=== PATIENT | female | born 1965 | race Caucasian/White ===

== ENCOUNTER 2018-03-13 08:42 | Emergency (ER) | payer MEDICAID ==
[~2018-03-13] VITALS: Ht 157.5 cm; Wt 65.2 kg
[2018-03-13 09:24] LABS: GLUCOSE,POINT OF CARE 129 MG/DL (70-110)
[2018-03-13 09:44] LABS: BILIRUBIN,URINE NEGATIVE (NEGATIVE); GLUCOSE, URINE (UA) NEGATIVE (NEGATIVE); KETONES,URINE NEGATIVE (NEGATIVE); LEUKOCYTE ESTERASE ,URINE NEGATIVE (NEGATIVE); NITRATE,URINE NEGATIVE (NEGATIVE); OCCULT BLOOD,URINE NEGATIVE (NEGATIVE); PROTEIN,URINE NEGATIVE (NEGATIVE); UROBILINOGEN,URINE 0.2 mg/dL (<=1.0)
[2018-03-13 09:56] LABS: BASOPHILS % (AUTO) 0.3 % (0.0-2.0); EOSINOPHILS % (AUTO) 1.3 % (1.0-6.0); HEMATOCRIT 30.8 % (36-46); HEMOGLOBIN 10.4 g/dL (12.0-16.0); LYMPHOCYTES # (AUTO) 3.8 K/uL (1.0-4.8); MEAN CORPUSCULAR HEMOGLOBIN 30.1 pg (26.0-34.0); MEAN CORPUSCULAR HGB CONC 33.9 G/dL (31.0-37.0); MEAN CORPUSCULAR VOLUME 89 fL (80-100); MONOCYTES # (AUTO) 0.7 K/uL (0.1-1.0); MONOCYTES % (AUTO) 4.9 % (2.0-9.0); NEUTROPHILS # (AUTO) 9.8 K/uL (1.8-7.7); NEUTROPHILS % (AUTO) 67.5 % (40.0-70.0); PLATELET COUNT (AUTO) 283 K/uL (150-450); RED BLOOD CELL COUNT(AUTO) 3.46 MIL/uL (4.00-5.20); RED CELL DISTRIBUTION WIDTH 13.4 % (11.5-14.5)
[2018-03-13 10:02] LABS: APPEARANCE,URINE CLEAR (CLEAR); BACTERIA,URINE None Seen /HPF (None Seen); RBC,URINE None Seen /HPF (0-2); WBC,URINE None Seen /HPF (0-5)
[2018-03-13 10:04] LABS: ANION GAP 6 mmol/L (8-16); CALCIUM, TOTAL 8.2 mg/dL (8.8-10.5); CARBON DIOXIDE 28 mmol/L (22-29); CHLORIDE 106 mmol/L (98-107); CREATININE 0.65 mg/dL (0.60-1.30); GLOMERULAR FILTR. RATE CALC > 60 mL/min (>60); GLUCOSE,RANDOM 132 mg/dL (70-110); POTASSIUM 3.9 mmol/L (3.5-5.1); SODIUM SERUM 140 mmol/L (136-145); UREA NITROGEN, BLOOD 24 mg/dL (7-18)
[2018-03-13 10:10] LABS: ALANINE AMINOTRANSFERASE 17 U/L (12-78); ALBUMIN 3.1 g/dL (3.4-5.0); ALKALINE PHOSPHATASE 90 U/L (46-116); ASPARTATE AMINOTRANSFERASE 11 U/L (15-37); BILIRUBIN,TOTAL 0.2 mg/dL (0.1-1.0); TOTAL PROTEIN, SERUM 6.7 g/dL (6.4-8.2)
[2018-03-13] MEDS ORDERED: PHENYLEPHRINE HCL 1% 15 ML NASAL SPRAY NASAL ONE (11:15)
[2018-03-13] MEDS ORDERED: ONDANSETRON HCL 4 MG TABLET PO ONE (12:45)
[2018-03-13 14:02] VITALS: BP 138/88
[2018-03-13] MEDS ORDERED: CEPH500 PO (20:21)
== END 2018-03-13 14:27 | disposition home or self-care (01) ==
LOC: EMS 08:42
DX: R04.0 Epistaxis (principal); F19.90 Other psychoactive substance use, unspecified, uncomplicated
CPT/HCPCS: 30901; 36415; 70450; 80053; 81001; 82962; 85025; 99285; Q0162

== ENCOUNTER 2018-03-13 20:06 | Emergency (ER) | payer MEDICAID ==
[~2018-03-13] VITALS: Ht 157.5 cm; Wt 65.1 kg
[2018-03-13] MEDS ORDERED: CEPH500 PO (20:21)
[2018-03-13] MEDS ORDERED: ONDANSETRON HCL 4 MG/2 ML VIAL IVP ONE ×2 (20:45→23:00)
[2018-03-13] MEDS ORDERED: SODIUM CHLORIDE 0.9% 1,000 ML IV ONE (20:45)
[2018-03-13 21:09] LABS: BASOPHILS % (AUTO) 0.5 % (0.0-2.0); EOSINOPHILS % (AUTO) 0.7 % (1.0-6.0); HEMATOCRIT 27.8 % (36-46); HEMOGLOBIN 9.4 g/dL (12.0-16.0); LYMPHOCYTES # (AUTO) 4.7 K/uL (1.0-4.8); LYMPHOCYTES % (AUTO) 28.5 % (22.0-44.0); MEAN CORPUSCULAR HEMOGLOBIN 30.2 pg (26.0-34.0); MEAN CORPUSCULAR HGB CONC 33.7 G/dL (31.0-37.0); MEAN CORPUSCULAR VOLUME 90 fL (80-100); MONOCYTES # (AUTO) 0.7 K/uL (0.1-1.0); MONOCYTES % (AUTO) 4.4 % (2.0-9.0); NEUTROPHILS # (AUTO) 10.8 K/uL (1.8-7.7); NEUTROPHILS % (AUTO) 65.9 % (40.0-70.0); PLATELET COUNT (AUTO) 298 K/uL (150-450); RED BLOOD CELL COUNT(AUTO) 3.11 MIL/uL (4.00-5.20); RED CELL DISTRIBUTION WIDTH 13.7 % (11.5-14.5)
[2018-03-13 21:11] LABS: ANION GAP 7 mmol/L (8-16); CARBON DIOXIDE 26 mmol/L (22-29); CHLORIDE 106 mmol/L (98-107); CREATININE 0.74 mg/dL (0.60-1.30); GLOMERULAR FILTR. RATE CALC > 60 mL/min (>60); GLUCOSE,RANDOM 127 mg/dL (70-110); POTASSIUM 3.7 mmol/L (3.5-5.1); SODIUM SERUM 139 mmol/L (136-145); UREA NITROGEN, BLOOD 27 mg/dL (7-18)
[2018-03-13 21:15] LABS: INR 1.1 (0.9-1.1); PROTHROMBIN TIME 11.6 SEC (9.4-11.6)
[2018-03-13 21:17] LABS: ALANINE AMINOTRANSFERASE 17 U/L (12-78); ALBUMIN 3.2 g/dL (3.4-5.0); ALKALINE PHOSPHATASE 83 U/L (46-116); ASPARTATE AMINOTRANSFERASE 8 U/L (15-37); BILIRUBIN,TOTAL 0.2 mg/dL (0.1-1.0); TOTAL PROTEIN, SERUM 6.7 g/dL (6.4-8.2)
[2018-03-14] MEDS ORDERED: METOCLOPRAMIDE HCL 5 MG/ML 2 ML VIAL IVP ONE (00:45)
[2018-03-14 01:38] VITALS: BP 154/88
== END 2018-03-14 02:00 | disposition home or self-care (01) ==
LOC: EMS 20:08
DX: K92.0 Hematemesis (principal); R04.0 Epistaxis; F19.90 Other psychoactive substance use, unspecified, uncomplicated
CPT/HCPCS: 36415; 80053; 85025; 85610; 85730; 96361; 96374; 96375; 96376; 99285; J2405; J2765; J7030

== ENCOUNTER 2018-12-03 23:42 | Inpatient (IN) | payer SELFPAY ==
[~2018-12-03] VITALS: Ht 162.6 cm; Wt 63.6 kg
[~2018-12-03 23:42] MED LIST: CEPH500 PO
[2018-12-04] MEDS ORDERED: SODIUM CHLORIDE 0.9% 1,900 ML IV ONE (01:30)
[2018-12-04] MEDS ORDERED: VANCOMYCIN HCL 1.25 GM in DEXTROSE 5%-WATER 250 ML IV ONE ×2 (01:30→22:00)
[2018-12-04] MEDS ORDERED: CefTRIAXone 1 GM/DEXTROSE 50 ML IV ONE (01:30)
[2018-12-04 01:32] LABS: BASOPHILS % (AUTO) 0.3 % (0.0-2.0); EOSINOPHILS % (AUTO) 0.3 % (1.0-6.0); HEMATOCRIT 41.7 % (36-46); HEMOGLOBIN 13.7 g/dL (12.0-16.0); LYMPHOCYTES # (AUTO) 2.6 K/uL (1.0-4.8); LYMPHOCYTES % (AUTO) 9.1 % (22.0-44.0); MEAN CORPUSCULAR HGB CONC 32.8 G/dL (31.0-37.0); MEAN CORPUSCULAR VOLUME 86 fL (80-100); MONOCYTES % (AUTO) 7.2 % (2.0-9.0); NEUTROPHILS # (AUTO) 23.5 K/uL (1.8-7.7); NEUTROPHILS % (AUTO) 83.1 % (40.0-70.0); PLATELET COUNT (AUTO) 482 K/uL (150-450); RED BLOOD CELL COUNT(AUTO) 4.88 MIL/uL (4.00-5.20); RED CELL DISTRIBUTION WIDTH 13.5 % (11.5-14.5)
[2018-12-04] MEDS ORDERED: IOVERSOL 350 MG/ML 100 ML VIAL ONE (01:36)
[2018-12-04 01:39] LABS: ANION GAP 9 mmol/L (8-16); CALCIUM, TOTAL 9.1 mg/dL (8.8-10.5); CARBON DIOXIDE 30 mmol/L (22-29); CHLORIDE 95 mmol/L (98-107); CREATININE 0.56 mg/dL (0.60-1.30); GLOMERULAR FILTR. RATE CALC > 60 mL/min (>60); GLUCOSE,RANDOM 130 mg/dL (70-110); POTASSIUM 3.5 mmol/L (3.5-5.1); SODIUM SERUM 134 mmol/L (136-145); UREA NITROGEN, BLOOD 7 mg/dL (7-18)
[2018-12-04 01:41] LABS: INR 1.3 (0.9-1.1); PROTHROMBIN TIME 13.3 SEC (9.4-11.6)
[2018-12-04 01:45] LABS: ALANINE AMINOTRANSFERASE 65 U/L (12-78); ALBUMIN 2.3 g/dL (3.4-5.0); ALKALINE PHOSPHATASE 297 U/L (46-116); ASPARTATE AMINOTRANSFERASE 61 U/L (15-37); BILIRUBIN,TOTAL 0.5 mg/dL (0.1-1.0); TOTAL PROTEIN, SERUM 7.5 g/dL (6.4-8.2)
[2018-12-04] MEDS ORDERED: ACETAMINOPHEN 650 MG/ISO-OSM 65 ML IV ONE (01:45)
[2018-12-04 11:21] VITALS: BP 119/59
[2018-12-04] MEDS ORDERED: SODIUM CL IRRIG SOLN BAG 0 ML IRRIG ONE ×2 (13:29→15:55)
[2018-12-04] MEDS ORDERED: BUPIVACAINE HCL/PF 0.5% 30 ML VIAL ONE (13:46)
[2018-12-04] MEDS ORDERED: LIDOCAINE 2%/EPI 1:200,000/PF 20 ML VIAL ONE (13:46)
[2018-12-04] MEDS ORDERED: RINGERS SOLUTION,LACTATED 1,000 ML IV ONE ×2 (14:00→16:46)
[2018-12-04] MEDS ORDERED: TRANEXAMIC ACID 1,000 MG in DEXTROSE 5%-WATER 50 ML IV ONE (16:45)
[2018-12-04] MEDS ORDERED: MORPHINE SULFATE 2 MG/ML SYRINGE IVP PRN (17:00)
[2018-12-04] MEDS ORDERED: HYDROCODONE/ACETAMINOPHEN 5-325 MG TABLET PO PRN (17:00)
[2018-12-04] MEDS ORDERED: FentaNYL CITRATE-PF 100 MCG/2 ML VIAL IVP PRN (17:15)
[2018-12-04] MEDS ORDERED: HYDROmorphone 2 MG/ML SYRINGE IVP PRN (17:15)
[2018-12-04] MEDS ORDERED: MEPERIDINE-PF 25 MG/ML VIAL IVP PRN (17:15)
[2018-12-04] MEDS ORDERED: MEPERIDINE-PF 25 MG/ML VIAL ONE (17:30)
[2018-12-04] MEDS ORDERED: HYDROmorphone 2 MG/ML SYRINGE ONE (17:30)
[2018-12-04 18:18] VITALS: BP 109/60
[2018-12-04 20:19] VITALS: BP 116/74
[2018-12-04] MEDS ORDERED: ONDANSETRON HCL 4 MG/2 ML VIAL IVP PRN (21:00)
[2018-12-04] MEDS ORDERED: OxyCODONE HCL/ACETAMINOPHEN 5-325 MG TABLET PO PRN (21:00)
[2018-12-04] MEDS ORDERED: 0.9% SODIUM CHLORIDE 10 ML SYRINGE IVP PRN (21:00)
[2018-12-04] MEDS: DOCUSATE SODIUM 100 MG CAPSULE PO SCH (22:26)
[2018-12-04 23:47] VITALS: BP 104/61
[2018-12-05] MEDS: PIPERACILLIN/TAZO 3.375 GM/D5W 50 ML IV SCH ×5 (00:30→23:24)
[2018-12-05 05:12] VITALS: BP 121/76
[2018-12-05] MEDS ORDERED: ONDANSETRON HCL 4 MG/2 ML VIAL IVP ONE (05:18)
[2018-12-05] MEDS ORDERED: METOCLOPRAMIDE HCL 5 MG/ML 2 ML VIAL IVP ONE (05:18)
[2018-12-05] MEDS ORDERED: MIDAZOLAM HCL 2 MG/2 ML VIAL IVP ONE (05:18)
[2018-12-05] MEDS ORDERED: ROCURONIUM BROMIDE 10 MG/ML 5 ML VIAL IVP ONE (05:18)
[2018-12-05] MEDS ORDERED: LIDOCAINE/PF 2% 5 ML SYRINGE IVP ONE (05:18)
[2018-12-05] MEDS ORDERED: DEXAMETHASONE SOD PHOS 4 MG/ML VIAL IVP ONE (05:18)
[2018-12-05] MEDS ORDERED: NEOSTIGMINE METHYLSULFATE 1 MG/ML 10 ML VIAL IVP ONE (05:18)
[2018-12-05] MEDS ORDERED: PROPOFOL 1% 20 ML VIAL IVP ONE (05:18)
[2018-12-05] MEDS ORDERED: FentaNYL CITRATE-PF 100 MCG/2 ML VIAL IVP ONE (05:18)
[2018-12-05] MEDS ORDERED: GLYCOPYRROLATE 0.2 MG/ML VIAL IM ONE (05:18)
[2018-12-05 06:00] LABS: BASOPHILS % (AUTO) 0.1 % (0.0-2.0); EOSINOPHILS % (AUTO) 0.1 % (1.0-6.0); HEMATOCRIT 34.6 % (36-46); HEMOGLOBIN 11.1 g/dL (12.0-16.0); LYMPHOCYTES # (AUTO) 2.4 K/uL (1.0-4.8); LYMPHOCYTES % (AUTO) 11.3 % (22.0-44.0); MEAN CORPUSCULAR HEMOGLOBIN 27.8 pg (26.0-34.0); MEAN CORPUSCULAR HGB CONC 32.2 G/dL (31.0-37.0); MEAN CORPUSCULAR VOLUME 87 fL (80-100); MONOCYTES # (AUTO) 1.2 K/uL (0.1-1.0); MONOCYTES % (AUTO) 5.5 % (2.0-9.0); NEUTROPHILS # (AUTO) 17.6 K/uL (1.8-7.7); PLATELET COUNT (AUTO) 495 K/uL (150-450); RED CELL DISTRIBUTION WIDTH 13.7 % (11.5-14.5)
[2018-12-05 06:28] LABS: ANION GAP 7 mmol/L (8-16); CALCIUM, TOTAL 9.1 mg/dL (8.8-10.5); CARBON DIOXIDE 31 mmol/L (22-29); CHLORIDE 101 mmol/L (98-107); CREATININE 0.64 mg/dL (0.60-1.30); GLOMERULAR FILTR. RATE CALC > 60 mL/min (>60); GLUCOSE,RANDOM 109 mg/dL (70-110); POTASSIUM 3.8 mmol/L (3.5-5.1); SODIUM SERUM 139 mmol/L (136-145); UREA NITROGEN, BLOOD 5 mg/dL (7-18)
[2018-12-05] MEDS ORDERED: SODIUM CHLORIDE 0.9% 250 ML IV ONE (06:44)
[2018-12-05 07:52] LABS: AMPHET/METH SCREEN,URINE NEGATIVE (NEGATIVE); BARBITURATE SCREEN, URINE NEGATIVE (NEGATIVE); BENZODIAZEPINES SCREEN,URINE POSITIVE (NEGATIVE); CANNABINOID SCREEN,URINE NEGATIVE (NEGATIVE); COCAINE SCREEN,URINE NEGATIVE (NEGATIVE); METHADONE SCREEN, URINE NEGATIVE (NEGATIVE); OPIATE SCREEN,URINE NEGATIVE (NEGATIVE); PHENCYCLIDINE SCREEN,URINE NEGATIVE (NEGATIVE)
[2018-12-05 08:10] VITALS: BP 114/61
[2018-12-05 08:53] VITALS: BP 114/71
[2018-12-05] MEDS: VANCOMYCIN HCL 1.25 GM in DEXTROSE 5%-WATER 250 ML IV SCH ×2 (08:56→19:55)
[2018-12-05] MEDS: DOCUSATE SODIUM 100 MG CAPSULE PO SCH ×2 (08:56→19:54)
[2018-12-05] MEDS: FAMOTIDINE 10 MG/ML 2 ML VIAL IVP SCH (08:56)
[2018-12-05] MEDS: OxyCODONE HCL/ACETAMINOPHEN 5-325 MG TABLET PO PRN (08:57)
[2018-12-05] MEDS: MORPHINE SULFATE 2 MG/ML SYRINGE IVP PRN (14:30)
[2018-12-05 19:42] VITALS: BP 106/57
[2018-12-05 23:35] VITALS: BP 98/65
[2018-12-05] MEDS: ACETAMINOPHEN 500 MG TABLET PO PRN (23:39)
[2018-12-06 04:06] VITALS: BP 103/54
[2018-12-06] MEDS: PIPERACILLIN/TAZO 3.375 GM/D5W 50 ML IV SCH ×4 (05:35→23:22)
[2018-12-06 05:52] LABS: ANION GAP 6 mmol/L (8-16); CARBON DIOXIDE 31 mmol/L (22-29); CHLORIDE 106 mmol/L (98-107); CREATININE 0.86 mg/dL (0.60-1.30); GLOMERULAR FILTR. RATE CALC > 60 mL/min (>60); GLUCOSE,RANDOM 89 mg/dL (70-110); POTASSIUM 3.4 mmol/L (3.5-5.1); SODIUM SERUM 143 mmol/L (136-145); UREA NITROGEN, BLOOD 6 mg/dL (7-18)
[2018-12-06 07:45] VITALS: BP 116/73
[2018-12-06] MEDS: DOCUSATE SODIUM 100 MG CAPSULE PO SCH ×2 (08:25→20:10)
[2018-12-06] MEDS: FAMOTIDINE 10 MG/ML 2 ML VIAL IVP SCH (08:25)
[2018-12-06] MEDS: VANCOMYCIN HCL 1.25 GM in DEXTROSE 5%-WATER 250 ML IV SCH ×2 (08:25→20:10)
[2018-12-06] MEDS ORDERED: POTASSIUM CHLORIDE 20 MEQ ER TABLET PO ONE (11:30)
[2018-12-06 11:35] VITALS: BP 107/61
[2018-12-06 15:11] LABS: BASOPHILS % (AUTO) 0.4 % (0.0-2.0); EOSINOPHILS % (AUTO) 1.6 % (1.0-6.0); HEMATOCRIT 33.6 % (36-46); HEMOGLOBIN 10.8 g/dL (12.0-16.0); LYMPHOCYTES # (AUTO) 2.9 K/uL (1.0-4.8); LYMPHOCYTES % (AUTO) 23.3 % (22.0-44.0); MEAN CORPUSCULAR HEMOGLOBIN 27.8 pg (26.0-34.0); MEAN CORPUSCULAR VOLUME 87 fL (80-100); MONOCYTES % (AUTO) 7.6 % (2.0-9.0); NEUTROPHILS # (AUTO) 8.5 K/uL (1.8-7.7); NEUTROPHILS % (AUTO) 67.1 % (40.0-70.0); PLATELET COUNT (AUTO) 563 K/uL (150-450); RED BLOOD CELL COUNT(AUTO) 3.87 MIL/uL (4.00-5.20); RED CELL DISTRIBUTION WIDTH 13.7 % (11.5-14.5)
[2018-12-06 15:22] LABS: CALCIUM, TOTAL 8.7 mg/dL (8.8-10.5); CREATININE 1.13 mg/dL (0.60-1.30)
[2018-12-06 16:55] VITALS: BP 111/71
[2018-12-06] MEDS: OxyCODONE HCL/ACETAMINOPHEN 5-325 MG TABLET PO PRN (17:24)
[2018-12-06 21:09] VITALS: BP 127/72
[2018-12-06] MEDS ORDERED: SODIUM CHLORIDE 0.9% 500 ML IV ONE (21:12)
[2018-12-06 23:57] VITALS: BP 102/54
[2018-12-07] MEDS: PIPERACILLIN/TAZO 3.375 GM/D5W 50 ML IV SCH (05:31)
[2018-12-07 05:35] VITALS: BP 111/60
[2018-12-07 06:01] LABS: ANION GAP 4 mmol/L (8-16); CALCIUM, TOTAL 8.8 mg/dL (8.8-10.5); CARBON DIOXIDE 31 mmol/L (22-29); CHLORIDE 108 mmol/L (98-107); CREATININE 0.76 mg/dL (0.60-1.30); GLOMERULAR FILTR. RATE CALC > 60 mL/min (>60); GLUCOSE,RANDOM 110 mg/dL (70-110); SODIUM SERUM 143 mmol/L (136-145); UREA NITROGEN, BLOOD 11 mg/dL (7-18); VANCOMYCIN,RANDOM 16.6 mcg/mL (25.0-50.0)
[2018-12-07 07:30] VITALS: BP 125/83
[2018-12-07] MEDS: DOCUSATE SODIUM 100 MG CAPSULE PO SCH ×2 (08:04→21:10)
[2018-12-07] MEDS: FAMOTIDINE 10 MG/ML 2 ML VIAL IVP SCH (08:04)
[2018-12-07] MEDS: VANCOMYCIN HCL 1.25 GM in DEXTROSE 5%-WATER 250 ML IV SCH (08:04)
[2018-12-07 11:07] VITALS: BP 142/80
[2018-12-07] MEDS: VANCOMYCIN HCL 1 GM/D5% WATER 200 ML IV SCH ×2 (14:44→22:13)
[2018-12-07 16:18] VITALS: BP 140/84
[2018-12-07 19:50] VITALS: BP 124/77
[2018-12-07 23:27] VITALS: BP 120/60
[2018-12-08 04:40] VITALS: BP 112/66
[2018-12-08] MEDS: VANCOMYCIN HCL 1 GM/D5% WATER 200 ML IV SCH ×3 (05:49→23:43)
[2018-12-08 06:39] LABS: BASOPHILS % (AUTO) 0.5 % (0.0-2.0); EOSINOPHILS % (AUTO) 1.1 % (1.0-6.0); HEMATOCRIT 35.9 % (36-46); HEMOGLOBIN 11.5 g/dL (12.0-16.0); LYMPHOCYTES # (AUTO) 3.3 K/uL (1.0-4.8); LYMPHOCYTES % (AUTO) 21.4 % (22.0-44.0); MEAN CORPUSCULAR HEMOGLOBIN 28.1 pg (26.0-34.0); MEAN CORPUSCULAR HGB CONC 32.2 G/dL (31.0-37.0); MEAN CORPUSCULAR VOLUME 87 fL (80-100); MONOCYTES # (AUTO) 0.9 K/uL (0.1-1.0); MONOCYTES % (AUTO) 6.1 % (2.0-9.0); NEUTROPHILS # (AUTO) 10.9 K/uL (1.8-7.7); NEUTROPHILS % (AUTO) 70.9 % (40.0-70.0); PLATELET COUNT (AUTO) 644 K/uL (150-450); RED CELL DISTRIBUTION WIDTH 14.2 % (11.5-14.5)
[2018-12-08 07:05] LABS: ANION GAP 7 mmol/L (8-16); CALCIUM, TOTAL 9.4 mg/dL (8.8-10.5); CARBON DIOXIDE 28 mmol/L (22-29); CHLORIDE 106 mmol/L (98-107); CREATININE 0.75 mg/dL (0.60-1.30); GLOMERULAR FILTR. RATE CALC > 60 mL/min (>60); GLUCOSE,RANDOM 115 mg/dL (70-110); POTASSIUM 4.4 mmol/L (3.5-5.1); SODIUM SERUM 141 mmol/L (136-145); UREA NITROGEN, BLOOD 9 mg/dL (7-18); VANCOMYCIN,RANDOM 41.9 mcg/mL (25.0-50.0)
[2018-12-08 07:10] VITALS: BP 124/54
[2018-12-08] MEDS: FAMOTIDINE 10 MG/ML 2 ML VIAL IVP SCH (08:49)
[2018-12-08] MEDS: DOCUSATE SODIUM 100 MG CAPSULE PO SCH ×2 (08:50→21:00)
[2018-12-08 11:20] VITALS: BP 122/59
[2018-12-08 15:30] VITALS: BP 134/80
[2018-12-08 19:46] VITALS: BP 133/79
[2018-12-08 23:23] VITALS: BP 144/82
[2018-12-09 05:22] VITALS: BP 128/73
[2018-12-09 06:27] LABS: ANION GAP 8 mmol/L (8-16); CALCIUM, TOTAL 9.4 mg/dL (8.8-10.5); CARBON DIOXIDE 28 mmol/L (22-29); CHLORIDE 102 mmol/L (98-107); CREATININE 0.85 mg/dL (0.60-1.30); GLOMERULAR FILTR. RATE CALC > 60 mL/min (>60); GLUCOSE,RANDOM 104 mg/dL (70-110); POTASSIUM 4.3 mmol/L (3.5-5.1); SODIUM SERUM 138 mmol/L (136-145); UREA NITROGEN, BLOOD 12 mg/dL (7-18)
[2018-12-09] MEDS: VANCOMYCIN HCL 1 GM/D5% WATER 200 ML IV SCH ×3 (07:33→22:51)
[2018-12-09 08:10] VITALS: BP 105/65
[2018-12-09] MEDS: DOCUSATE SODIUM 100 MG CAPSULE PO SCH ×2 (08:18→20:13)
[2018-12-09] MEDS: FAMOTIDINE 10 MG/ML 2 ML VIAL IVP SCH (08:18)
[2018-12-09 13:03] VITALS: BP 118/74
[2018-12-09 13:11] LABS: BASOPHILS % (AUTO) 0.8 % (0.0-2.0); EOSINOPHILS % (AUTO) 1.3 % (1.0-6.0); HEMATOCRIT 37.5 % (36-46); HEMOGLOBIN 11.8 g/dL (12.0-16.0); MEAN CORPUSCULAR HEMOGLOBIN 27.8 pg (26.0-34.0); MEAN CORPUSCULAR HGB CONC 31.4 G/dL (31.0-37.0); MEAN CORPUSCULAR VOLUME 89 fL (80-100); MONOCYTES # (AUTO) 1.3 K/uL (0.1-1.0); MONOCYTES % (AUTO) 7.1 % (2.0-9.0); NEUTROPHILS # (AUTO) 13.1 K/uL (1.8-7.7); NEUTROPHILS % (AUTO) 73.8 % (40.0-70.0); PLATELET COUNT (AUTO) 680 K/uL (150-450); RED BLOOD CELL COUNT(AUTO) 4.23 MIL/uL (4.00-5.20); RED CELL DISTRIBUTION WIDTH 14.3 % (11.5-14.5)
[2018-12-09 13:13] LABS: ALANINE AMINOTRANSFERASE 32 U/L (12-78); ALBUMIN 2.5 g/dL (3.4-5.0); ALKALINE PHOSPHATASE 130 U/L (46-116); ASPARTATE AMINOTRANSFERASE 24 U/L (15-37); BILIRUBIN,TOTAL 0.2 mg/dL (0.1-1.0); TOTAL PROTEIN, SERUM 7.2 g/dL (6.4-8.2)
[2018-12-09] MEDS ORDERED: MAGNESIUM HYDROXIDE SUSPENSION 30 ML UDCUP PO PRN (15:00)
[2018-12-09] MEDS: MORPHINE SULFATE 2 MG/ML SYRINGE IVP PRN (15:03)
[2018-12-09 16:10] VITALS: BP 122/69
[2018-12-09 20:08] VITALS: BP 120/73
[2018-12-09 23:48] VITALS: BP 109/68
[2018-12-10 04:46] VITALS: BP 129/74
[2018-12-10 05:35] LABS: ANION GAP 7 mmol/L (8-16); CALCIUM, TOTAL 9.4 mg/dL (8.8-10.5); CARBON DIOXIDE 29 mmol/L (22-29); CHLORIDE 104 mmol/L (98-107); GLOMERULAR FILTR. RATE CALC > 60 mL/min (>60); GLUCOSE,RANDOM 109 mg/dL (70-110); POTASSIUM 4.3 mmol/L (3.5-5.1); SODIUM SERUM 140 mmol/L (136-145); UREA NITROGEN, BLOOD 12 mg/dL (7-18)
[2018-12-10] MEDS: VANCOMYCIN HCL 1 GM/D5% WATER 200 ML IV SCH ×3 (06:22→22:54)
[2018-12-10 07:43] VITALS: BP 125/68
[2018-12-10] MEDS: OxyCODONE HCL/ACETAMINOPHEN 5-325 MG TABLET PO PRN (07:45)
[2018-12-10] MEDS: FAMOTIDINE 10 MG/ML 2 ML VIAL IVP SCH (07:45)
[2018-12-10] MEDS: DOCUSATE SODIUM 100 MG CAPSULE PO SCH ×2 (07:45→20:03)
[2018-12-10 09:39] LABS: BASOPHILS % (AUTO) 0.5 % (0.0-2.0); EOSINOPHILS % (AUTO) 1.3 % (1.0-6.0); HEMATOCRIT 36.5 % (36-46); HEMOGLOBIN 11.7 g/dL (12.0-16.0); LYMPHOCYTES # (AUTO) 2.8 K/uL (1.0-4.8); MEAN CORPUSCULAR HEMOGLOBIN 28.3 pg (26.0-34.0); MEAN CORPUSCULAR VOLUME 88 fL (80-100); MONOCYTES # (AUTO) 1.1 K/uL (0.1-1.0); MONOCYTES % (AUTO) 6.4 % (2.0-9.0); NEUTROPHILS # (AUTO) 12.4 K/uL (1.8-7.7); NEUTROPHILS % (AUTO) 74.8 % (40.0-70.0); PLATELET COUNT (AUTO) 668 K/uL (150-450); RED BLOOD CELL COUNT(AUTO) 4.13 MIL/uL (4.00-5.20); RED CELL DISTRIBUTION WIDTH 14.2 % (11.5-14.5)
[2018-12-10 11:34] VITALS: BP 117/73
[2018-12-10 15:55] VITALS: BP 134/84
[2018-12-10 19:51] VITALS: BP 121/67
[2018-12-10 23:56] VITALS: BP 116/66
[2018-12-11 04:59] VITALS: BP 131/70
[2018-12-11 05:52] LABS: ANION GAP 4 mmol/L (8-16); CALCIUM, TOTAL 9.3 mg/dL (8.8-10.5); CARBON DIOXIDE 30 mmol/L (22-29); CHLORIDE 103 mmol/L (98-107); CREATININE 0.83 mg/dL (0.60-1.30); GLOMERULAR FILTR. RATE CALC > 60 mL/min (>60); GLUCOSE,RANDOM 101 mg/dL (70-110); SODIUM SERUM 137 mmol/L (136-145); UREA NITROGEN, BLOOD 11 mg/dL (7-18); VANCOMYCIN,RANDOM 28.6 mcg/mL (25.0-50.0)
[2018-12-11] MEDS: VANCOMYCIN HCL 1 GM/D5% WATER 200 ML IV SCH (06:33)
[2018-12-11 07:45] VITALS: BP 127/56
[2018-12-11] MEDS: DOCUSATE SODIUM 100 MG CAPSULE PO SCH ×2 (08:25→20:20)
[2018-12-11] MEDS: FAMOTIDINE 10 MG/ML 2 ML VIAL IVP SCH (08:25)
[2018-12-11 11:20] VITALS: BP 97/56
[2018-12-11 16:00] VITALS: BP 121/66
[2018-12-11 19:38] VITALS: BP 113/60
[2018-12-11 23:42] VITALS: BP 110/62
[2018-12-12 05:37] VITALS: BP 131/60
[2018-12-12 05:50] LABS: BASOPHILS % (AUTO) 0.4 % (0.0-2.0); EOSINOPHILS % (AUTO) 1.8 % (1.0-6.0); HEMATOCRIT 34.2 % (36-46); HEMOGLOBIN 11.1 g/dL (12.0-16.0); LYMPHOCYTES # (AUTO) 3.1 K/uL (1.0-4.8); MEAN CORPUSCULAR HEMOGLOBIN 28.3 pg (26.0-34.0); MEAN CORPUSCULAR HGB CONC 32.4 G/dL (31.0-37.0); MEAN CORPUSCULAR VOLUME 87 fL (80-100); MONOCYTES # (AUTO) 1.1 K/uL (0.1-1.0); MONOCYTES % (AUTO) 7.8 % (2.0-9.0); NEUTROPHILS # (AUTO) 9.1 K/uL (1.8-7.7); PLATELET COUNT (AUTO) 679 K/uL (150-450); RED BLOOD CELL COUNT(AUTO) 3.92 MIL/uL (4.00-5.20); RED CELL DISTRIBUTION WIDTH 14.5 % (11.5-14.5)
[2018-12-12 06:44] LABS: ANION GAP 7 mmol/L (8-16); CALCIUM, TOTAL 9.5 mg/dL (8.8-10.5); CARBON DIOXIDE 30 mmol/L (22-29); CHLORIDE 102 mmol/L (98-107); CREATININE 0.89 mg/dL (0.60-1.30); GLOMERULAR FILTR. RATE CALC > 60 mL/min (>60); GLUCOSE,RANDOM 106 mg/dL (70-110); POTASSIUM 4.1 mmol/L (3.5-5.1); SODIUM SERUM 139 mmol/L (136-145); UREA NITROGEN, BLOOD 11 mg/dL (7-18)
[2018-12-12 07:55] VITALS: BP 127/61
[2018-12-12] MEDS ORDERED: VANCOMYCIN HCL 1 GM/D5% WATER 200 ML IV SCH (08:00)
[2018-12-12] MEDS: DOCUSATE SODIUM 100 MG CAPSULE PO SCH ×2 (08:04→20:10)
[2018-12-12] MEDS: MULTIVITAMINS WITH MINERALS, THERAPEUTIC TABLET PO SCH (08:04)
[2018-12-12] MEDS: VANCOMYCIN HCL 1.25 GM in DEXTROSE 5%-WATER 250 ML IV SCH ×2 (08:04→18:47)
[2018-12-12] MEDS: ZINC SULFATE 220 MG CAPSULE PO SCH (08:04)
[2018-12-12] MEDS: ASCORBIC ACID 500 MG TABLET PO SCH (08:04)
[2018-12-12] MEDS: FAMOTIDINE 10 MG/ML 2 ML VIAL IVP SCH (08:05)
[2018-12-12 12:40] VITALS: BP 112/53
[2018-12-12 20:02] VITALS: BP 124/65
[2018-12-13 05:29] LABS: ANION GAP 9 mmol/L (8-16); CALCIUM, TOTAL 9.1 mg/dL (8.8-10.5); CARBON DIOXIDE 28 mmol/L (22-29); CHLORIDE 104 mmol/L (98-107); CREATININE 0.88 mg/dL (0.60-1.30); GLOMERULAR FILTR. RATE CALC > 60 mL/min (>60); GLUCOSE,RANDOM 108 mg/dL (70-110); POTASSIUM 4.2 mmol/L (3.5-5.1); SODIUM SERUM 141 mmol/L (136-145); UREA NITROGEN, BLOOD 16 mg/dL (7-18)
[2018-12-13 06:00] VITALS: BP 127/67
[2018-12-13] MEDS: VANCOMYCIN HCL 1.25 GM in DEXTROSE 5%-WATER 250 ML IV SCH ×2 (06:15→20:41)
[2018-12-13] MEDS: ACETAMINOPHEN 500 MG TABLET PO PRN (06:15)
[2018-12-13 07:38] VITALS: BP 145/60
[2018-12-13] MEDS: FAMOTIDINE 10 MG/ML 2 ML VIAL IVP SCH (08:42)
[2018-12-13] MEDS: DOCUSATE SODIUM 100 MG CAPSULE PO SCH ×2 (08:42→21:00)
[2018-12-13] MEDS: ASCORBIC ACID 500 MG TABLET PO SCH (08:42)
[2018-12-13] MEDS: ZINC SULFATE 220 MG CAPSULE PO SCH (08:43)
[2018-12-13] MEDS: MULTIVITAMINS WITH MINERALS, THERAPEUTIC TABLET PO SCH (08:43)
[2018-12-13 11:32] VITALS: BP 134/67
[2018-12-13 16:05] VITALS: BP 126/73
[2018-12-13 19:52] VITALS: BP 134/65
[2018-12-13 23:29] VITALS: BP 137/69
[2018-12-14 04:58] VITALS: BP 143/71
[2018-12-14 06:29] LABS: ANION GAP 9 mmol/L (8-16); CALCIUM, TOTAL 9.2 mg/dL (8.8-10.5); CARBON DIOXIDE 26 mmol/L (22-29); CHLORIDE 105 mmol/L (98-107); CREATININE 0.85 mg/dL (0.60-1.30); GLOMERULAR FILTR. RATE CALC > 60 mL/min (>60); GLUCOSE,RANDOM 103 mg/dL (70-110); SODIUM SERUM 140 mmol/L (136-145); UREA NITROGEN, BLOOD 16 mg/dL (7-18); VANCOMYCIN,RANDOM 16.2 mcg/mL (25.0-50.0)
[2018-12-14] MEDS: VANCOMYCIN HCL 1.25 GM in DEXTROSE 5%-WATER 250 ML IV SCH (07:33)
[2018-12-14 07:41] VITALS: BP 125/72
[2018-12-14] MEDS: ASCORBIC ACID 500 MG TABLET PO SCH (08:15)
[2018-12-14] MEDS: FAMOTIDINE 10 MG/ML 2 ML VIAL IVP SCH (08:15)
[2018-12-14] MEDS: ZINC SULFATE 220 MG CAPSULE PO SCH (08:16)
[2018-12-14] MEDS: DOCUSATE SODIUM 100 MG CAPSULE PO SCH ×2 (08:16→20:41)
[2018-12-14] MEDS: MULTIVITAMINS WITH MINERALS, THERAPEUTIC TABLET PO SCH (08:16)
[2018-12-14 11:18] VITALS: BP 137/71
[2018-12-14] MEDS: VANCOMYCIN HCL 1 GM/D5% WATER 200 ML IV SCH ×2 (14:30→23:09)
[2018-12-14 16:06] VITALS: BP 135/85
[2018-12-14 20:29] VITALS: BP 120/69
[2018-12-14] MEDS ORDERED: SODIUM CHLORIDE 0.9% 500 ML IV ONE (23:12)
[2018-12-14 23:53] VITALS: BP 110/63
[2018-12-15 05:15] VITALS: BP 123/67
[2018-12-15] MEDS: VANCOMYCIN HCL 1 GM/D5% WATER 200 ML IV SCH ×3 (06:48→22:27)
[2018-12-15 07:43] LABS: ANION GAP 13 mmol/L (8-16); CALCIUM, TOTAL 8.9 mg/dL (8.8-10.5); CARBON DIOXIDE 27 mmol/L (22-29); CHLORIDE 105 mmol/L (98-107); GLOMERULAR FILTR. RATE CALC > 60 mL/min (>60); GLUCOSE,RANDOM 95 mg/dL (70-110); SODIUM SERUM 145 mmol/L (136-145); UREA NITROGEN, BLOOD 14 mg/dL (7-18); VANCOMYCIN,RANDOM 21.7 mcg/mL (25.0-50.0)
[2018-12-15 07:56] VITALS: BP 119/69
[2018-12-15] MEDS: MULTIVITAMINS WITH MINERALS, THERAPEUTIC TABLET PO SCH (08:09)
[2018-12-15] MEDS: DOCUSATE SODIUM 100 MG CAPSULE PO SCH ×2 (08:09→21:23)
[2018-12-15] MEDS: FAMOTIDINE 10 MG/ML 2 ML VIAL IVP SCH (08:09)
[2018-12-15] MEDS: ASCORBIC ACID 500 MG TABLET PO SCH (08:09)
[2018-12-15] MEDS: ZINC SULFATE 220 MG CAPSULE PO SCH (08:09)
[2018-12-15 11:55] VITALS: BP 126/63
[2018-12-15 15:25] VITALS: BP 130/83
[2018-12-15 19:31] VITALS: BP 133/71
[2018-12-15 19:35] VITALS: BP 133/71
[2018-12-16] VITALS (7 sets, daily range): BP systolic 104–132; BP diastolic 57–77
[2018-12-16] MEDS: VANCOMYCIN HCL 1 GM/D5% WATER 200 ML IV SCH ×3 (06:26→23:43)
[2018-12-16 07:30] LABS: ANION GAP 7 mmol/L (8-16); CALCIUM, TOTAL 9.3 mg/dL (8.8-10.5); CARBON DIOXIDE 29 mmol/L (22-29); CHLORIDE 105 mmol/L (98-107); CREATININE 0.82 mg/dL (0.60-1.30); GLOMERULAR FILTR. RATE CALC > 60 mL/min (>60); GLUCOSE,RANDOM 93 mg/dL (70-110); POTASSIUM 4.1 mmol/L (3.5-5.1); SODIUM SERUM 141 mmol/L (136-145)
[2018-12-16 07:48] LABS: UREA NITROGEN, BLOOD 15 mg/dL (7-18)
[2018-12-16] MEDS: MULTIVITAMINS WITH MINERALS, THERAPEUTIC TABLET PO SCH (08:34)
[2018-12-16] MEDS: ZINC SULFATE 220 MG CAPSULE PO SCH (08:34)
[2018-12-16] MEDS: DOCUSATE SODIUM 100 MG CAPSULE PO SCH ×2 (08:34→21:00)
[2018-12-16] MEDS: FAMOTIDINE 10 MG/ML 2 ML VIAL IVP SCH (08:34)
[2018-12-16] MEDS: ASCORBIC ACID 500 MG TABLET PO SCH (08:34)
[2018-12-16] MEDS: ACETAMINOPHEN 500 MG TABLET PO PRN (16:09)
[2018-12-17 05:30] VITALS: BP 133/62
[2018-12-17] MEDS: VANCOMYCIN HCL 1 GM/D5% WATER 200 ML IV SCH ×2 (06:00→14:24)
[2018-12-17 06:13] LABS: ANION GAP 6 mmol/L (8-16); CALCIUM, TOTAL 9.5 mg/dL (8.8-10.5); CARBON DIOXIDE 29 mmol/L (22-29); CHLORIDE 104 mmol/L (98-107); CREATININE 0.84 mg/dL (0.60-1.30); GLOMERULAR FILTR. RATE CALC > 60 mL/min (>60); GLUCOSE,RANDOM 110 mg/dL (70-110); POTASSIUM 4.4 mmol/L (3.5-5.1); SODIUM SERUM 139 mmol/L (136-145); UREA NITROGEN, BLOOD 15 mg/dL (7-18)
[2018-12-17 08:01] VITALS: BP 109/69
[2018-12-17] MEDS: ASCORBIC ACID 500 MG TABLET PO SCH (08:11)
[2018-12-17] MEDS: MULTIVITAMINS WITH MINERALS, THERAPEUTIC TABLET PO SCH (08:11)
[2018-12-17] MEDS: ZINC SULFATE 220 MG CAPSULE PO SCH (08:11)
[2018-12-17] MEDS: DOCUSATE SODIUM 100 MG CAPSULE PO SCH (08:11)
[2018-12-17] MEDS ORDERED: FAMOTIDINE 20 MG TABLET PO SCH (09:00)
[2018-12-17] MEDS ORDERED: ASCO500 PO (10:08)
[2018-12-17] MEDS ORDERED: ZINC220 PO (10:09)
[2018-12-17 13:04] VITALS: BP 136/84
[2018-12-17 15:32] VITALS: BP 132/75
== END 2018-12-17 18:00 | disposition home or self-care (01) | DRG 853 ==
LOC: EMS 23:43 → 4E 12-04 09:52
PROVIDERS: ADMIT Internal Medicine; ATTEND Internal Medicine
PROC: 0KB30ZZ Excision of Left Neck Muscle, Open Approach (ICD-10-PCS; principal; 2018-12-04 16:30)
DX: A41.9 Sepsis, unspecified organism (principal); E43 Unspecified severe protein-calorie malnutrition; E87.1 Hypo-osmolality and hyponatremia; L02.11 Cutaneous abscess of neck; M60.9 Myositis, unspecified; M72.9 Fibroblastic disorder, unspecified; B95.62 Methicillin resistant Staphylococcus aureus infection as the cause of diseases classified elsewhere; L02.92 Furuncle, unspecified; Z59.0 Homelessness; Z68.24 Body mass index [BMI] 24.0-24.9, adult
CPT/HCPCS: 70450; 70491; 80307; 83605; 87040; 87070; 87081; 87205; 88304; 99291; G0378; J0131; J0696; J1100; J1170; J2175; J2250; J2270; J2405; J2543; J2704; J2765; J3010; J3370; J3490; J7030; J7040; J7050; J7060; J7120